=== PATIENT | male | born 1935 | race Caucasian/White ===

== ENCOUNTER 2021-12-24 05:33 | Inpatient (IN) ==
[2021-12-21 12:11] LABS: Bilirubin,Urine Negative (Negative); Blood, Urine Small mg/dL (Negative); Glucose,Urine (UA) Negative (Negative); Ketones,Urine Negative (Negative); Mucus,Urine Occasional /LPF (Occasional); Nitrite,Urine Negative (Negative); Protein,Urine 30 mg/dL (Negative); RBC,Urine 25-30 /HPF (0-4); Urine Appearance CLOUDY (Clear); Urine Color Yellow (Yellow); Urine Urobilinogen < 2.0 eU/dL (<2.0)
[2021-12-24] MEDS ORDERED: NEOMYCIN/POLYMYXIN IRRIG SOLN 1 ML AMP BLADDERIRR ONE (05:57)
[2021-12-24] MEDS ORDERED: LEVOFLOXACIN INJ 500 MG/100 ML PREMIX IV ONE (06:30)
[2021-12-24] MEDS: LACTATED RINGERS 1,000 ML IV SCH (06:38)
[2021-12-24] MEDS ORDERED: ROCURONIUM 50 MG/5 ML VIAL IV ONE (06:39)
[2021-12-24] MEDS ORDERED: LIDOCAINE 2% 5 ML VIAL ONE (06:39)
[2021-12-24] MEDS ORDERED: ETOMIDATE 40 MG/20 ML VIAL IV ONE (06:39)
[2021-12-24] MEDS ORDERED: propofoL 200 MG/20 ML VIAL IV ONE (06:39)
[2021-12-24] MEDS ORDERED: fentaNYL 100 MCG/2 ML VIAL ONE (06:40)
[2021-12-24] MEDS ORDERED: ePHEDrine 50 MG/ML VIAL ONE (07:29)
[2021-12-24] MEDS ORDERED: AMPICILLIN INJ 2,000 MG in SODIUM CHLORIDE 0.9% 100 ML IV ONE (07:33)
[2021-12-24] MEDS ORDERED: AMPICILLIN 2,000 MG VIAL ONE (07:38)
[2021-12-24] MEDS ORDERED: GLYCOPYRROLATE 0.4 MG/2 ML VIAL ONE (07:48)
[2021-12-24] MEDS ORDERED: ONDANSETRON 4 MG/2 ML VIAL ONE (07:48)
[2021-12-24] MEDS ORDERED: NEOSTIGMINE 10 MG/10 ML VIAL ONE (07:49)
[2021-12-24] MEDS ORDERED: SEVOFLURANE 1 UNIT/15 MINUTE INH ONE (08:32)
[2021-12-24] MEDS ORDERED: ONDANSETRON 4 MG/2 ML VIAL IV PRN (08:36)
[2021-12-24] MEDS: DEXTROSE 5% NACL 0.45% 1,000 ML IV SCH ×2 (10:19→20:10)
[2021-12-24] MEDS: BICALUTAMIDE 50 MG TABLET PO SCH (11:32)
[2021-12-24] MEDS: GABAPENTIN 300 MG CAPSULE PO SCH (11:32)
[2021-12-24] MEDS: FUROSEMIDE 40 MG TABLET PO SCH (15:20)
[2021-12-24] MEDS: AMPICILLIN INJ 1,000 MG in SODIUM CHLORIDE 0.9% 100 ML IV SCH ×2 (15:21→20:10)
[2021-12-24] MEDS: SIMVASTATIN 10 MG TABLET PO SCH (20:09)
[2021-12-25] MEDS: AMPICILLIN INJ 1,000 MG in SODIUM CHLORIDE 0.9% 100 ML IV SCH (03:42)
[2021-12-25 05:56] LABS: Basophils % 0.3 % (0.0-0.8); Eosinophils # 0.3 10*3/uL (0.0-0.87); Eosinophils % 4.2 % (0.00-10.9); Hematocrit 37.4 VOL% (42.0-52.0); Immature Granulocytes % 0.3 %; Immature Granulocytes Absolute 0.02 #; Lymphocytes % 14.6 % (21.2-54.2); Mean Corpuscular HGB Conc 32.1 GM/DL (32-36); Mean Corpuscular Volume 102.2 FL (87-102); Mean Platelet Volume 9.1 FL (9.6-12.0); Monocytes # 0.8 10*3/uL (0.11-0.8); Monocytes % 10.6 % (1.7-12.7); Platelet Count 127 T/CUMM (130-400); Red Blood Count 3.66 MC/CUMM (3.8-5.5); Red Cell Distribution Width 13.7 % (9.3-17.3); White Blood Count 7.1 T/CUMM (4-12)
[2021-12-25] MEDS: LEVOTHYROXINE 112 MCG TABLET PO SCH (06:01)
[2021-12-25 06:17] LABS: Calcium 8.1 MG/DL (8.5-10.1); Osmolality,Calculated 283.1 MOS/KG (273-304); Potassium 3.5 MMOL/L (3.5-5.1)
[2021-12-25] MEDS: DEXTROSE 5% NACL 0.45% 1,000 ML IV SCH (07:00)
[2021-12-25] MEDS: GABAPENTIN 300 MG CAPSULE PO SCH ×2 (09:58→10:13)
[2021-12-25] MEDS: BICALUTAMIDE 50 MG TABLET PO SCH (09:58)
[2021-12-25] MEDS: FUROSEMIDE 40 MG TABLET PO SCH ×2 (09:58→17:08)
[2021-12-25] MEDS: PANTOPRAZOLE 40 MG TABLET PO SCH (09:58)
[2021-12-25] MEDS: LACTATED RINGERS 1,000 ML IV SCH (12:26)
[2021-12-25] MEDS ORDERED: POLYETHYLENE GLYCOL POWDER 17 GM PACK PO PRN (19:14)
[2021-12-25] MEDS ORDERED: MAGNESIUM HYDROXIDE SUSP 30 ML UDCUP PO ONE (19:29)
[2021-12-25] MEDS: SIMVASTATIN 10 MG TABLET PO SCH (20:33)
[2021-12-25] MEDS ORDERED: GABAPENTIN 300 MG CAPSULE PO SCH (21:00)
[2021-12-26] MEDS: LEVOTHYROXINE 112 MCG TABLET PO SCH (05:31)
[2021-12-26] MEDS: LACTATED RINGERS 1,000 ML IV SCH (06:10)
[2021-12-26] MEDS: BICALUTAMIDE 50 MG TABLET PO SCH (09:17)
[2021-12-26] MEDS: FUROSEMIDE 40 MG TABLET PO SCH (09:17)
[2021-12-26] MEDS: PANTOPRAZOLE 40 MG TABLET PO SCH (09:18)
[2021-12-26 11:19] VITALS: BP 111/68
== END 2021-12-26 15:00 | disposition home health service (06) | DRG 714 ==
LOC: N.OR 05:33 → N.SDSINP 05:34 → N.3E 08:36
PROVIDERS: ADMIT Urology; ATTEND Urology